=== PATIENT | male | born 1995 | race African-American/Black ===

== ENCOUNTER 2017-10-02 13:46 | Emergency (ER) | payer MEDICAID ==
[~2017-10-02] VITALS: Ht 172.7 cm; Wt 120.0 kg
[2017-10-02 13:50] VITALS: BP 146/88
== END 2017-10-02 20:06 | disposition left against medical advice (07) ==
LOC: ER 14:02
DX: Z53.21 Procedure and treatment not carried out due to patient leaving prior to being seen by health care provider (principal)
CPT/HCPCS: 93005